=== PATIENT | female | born 1965 | race Asian ===

== ENCOUNTER 2021-06-14 09:09 | Outpatient (CLI) | payer OTHER | END 2021-06-14 20:07 | disposition home or self-care (01) | LOC: RAD 09:09 | PROVIDERS: ATTEND Nurse Practitioner Family | DX: E55.9 Vitamin D deficiency, unspecified (principal); E56.8 Deficiency of other vitamins; M06.09 Rheumatoid arthritis without rheumatoid factor, multiple sites; M06.4 Inflammatory polyarthropathy; M85.89 Other specified disorders of bone density and structure, multiple sites ==